=== PATIENT | male | born 1930 | race Caucasian/White ===

== ENCOUNTER 2016-06-22 22:51 | Inpatient (IN) | payer MEDICARE, OTHER ==
[~2016-06-22 22:51] MED LIST: ADULT LOW DOSE81 M1 PO; ADULT LOW DOSE81 MG; AMOXICILLIN500 M1 PO; ASPIRIN81 M1 PO; BACTROBAN15 G1 TP; CENTRUM SILVER1 EAC3 PO; CENTRUM SILVER1 TA; CLONAZEPAM1 M2 PO; CLONAZEPAM2 MG; DEMADEX20 M1 PO; DIGITEK125 MCG; E-400400 UNIT; FLOMAX0.4 M1 PO; FLOMAX0.4 MG; FLUOXETINE HCL10 M2 PO; ISOSORBIDE MONO30 M4 PO; LASIX40 M1 PO; LIPITOR80 MG; LOFIBRA160 M1 PO; LOPRESSOR100 MG; LOPRESSOR50 M1 PO; LORTAB 5-325 M1 EAC1 PO; METOLAZONE5 M1 PO; METOPROLOL TART25 M1 PO; NITROGLYCERIN0.4 M2 SL; NORVASC5 M2 PO; NORVASC5 MG; OCUVITE SOFTGE1 EACH PO; OMEGA-3 FISH1000 M1 PO; PENTOXIFYLLINE400 M2 PO; PLAVIX75 M1 PO; POTASSIUM CHLO10 ME2 PO; POTASSIUM CHLO20 ME3 PO; PROAIR HFA8.5 GM; PROCRIT40000 UNIT SC; PROTONIX40 M2 PO; RANEXA500 M1 PO; RENVELA800 M1 PO; REQUIP1 M1 PO; TOPROL XL100 M1 PO; TORSEMIDE20 M2 PO; TRENTAL400 MG; TRICOR145 MG; VITAMIN D250000 UNI1 PO; ZITHROMAX500 M1 PO; [UNRECOGNIZED DRUG - OTHER]; [UNRECOGNIZED DRUG - OTHER] PO; [UNRECOGNIZED DRUG - REMARK]
[2016-06-22 23:38] LABS: BASO % 0.1 % (0-2); EOS % 0.6 % (0-7); EOSINOPHIL ABSOLUTE COUNT 0.1 tho/cmm (0.0-0.7); HCT-HEMATOCRIT 37.7 % (36.0-53.5); HGB-HEMOGLOBIN 13.3 gm/dl (13.5-17.0); IMMATURE GRANULOCYTES ABSOLUTE 0.03 tho/cmm (0-0.03); IMMATURE GRANULOCYTES PERCENT 0.3 % (0-0.3); LYMPH ABSOLUTE COUNT 0.9 tho/cmm (0.8-4.5); MCH (MEAN CORPUSCULAR HGB) 28.9 pg (28.0-32.0); MCHC MEAN CORPUSCULAR HGB CONC 35.3 % (32.0-36.0); MCV (MEAN CELL VOLUME) 81.8 fl (82.0-96.0); MEAN PLATELET VOLUME 9.2 cmc (9.4-12.4); MONO % 6.7 % (0-12); MONOCYTE ABSOLUTE COUNT 0.7 tho/cmm (0.0-1.2); NEUTROPHIL ABSOLUTE COUNT 8.5 tho/cmm (1.6-8.0); NEUTROPHIL-AUTOMATED 8.5 tho/cmm (1.6-8.0); NEUTROPHILS % 83.3 % (40-80); PLATELET COUNT 238 tho/cmm (150-450); RED BLOOD COUNT 4.61 mil/cmm (4.40-5.70); WHITE BLOOD COUNT 10.2 tho/cmm (4.0-10.0)
[2016-06-22 23:54] LABS: INR 1.3 INR (0.9-1.1); PROTHROMBIN TIME 15.8 SECONDS (9.0-13.6)
[2016-06-22 23:57] LABS: ALB/GLOB RATIO 0.4 (0.8-2.0); ALBUMIN 2.2 g/dl (3.5-5.0); ALKALINE PHOSPHATASE 78 U/L (33-138); ALT/SGPT 25 U/L (12-78); ANION GAP 21 mmol/L (0-20); AST/SGOT 68 U/L (10-40); BILIRUBIN,TOTAL 0.9 mg/dl (0.0-1.5); BLOOD UREA NITROGEN 97 mg/dl (6-24); CALCIUM 8.3 mg/dl (8.5-10.5); CARBON DIOXIDE-VENOUS 21 mmol/L (22-32); CHLORIDE 92 mmol/l (96-110); CREATININE 7.31 mg/dl (0.60-1.30); GLUCOSE 112 mg/dL (70-110); LIPASE 821 U/L (73-393); MAGNESIUM 2.3 mg/dl (1.3-2.6); POTASSIUM 3.5 mmol/L (3.7-5.1); SODIUM 130 mmol/L (135-145); eGFR VALUE FOR BLACK 7 mL/Min
[2016-06-23] MEDS ORDERED: MIDODRINE HCL2.5 M1 PO (00:56)
[2016-06-23] MEDS ORDERED: GENTAMICIN SUL3.5 GM TP (00:57)
[2016-06-24 04:19] LABS: BASO % 0.1 % (0-2); EOS % 0.6 % (0-7); EOSINOPHIL ABSOLUTE COUNT 0.1 tho/cmm (0.0-0.7); HCT-HEMATOCRIT 37.2 % (36.0-53.5); HGB-HEMOGLOBIN 13.3 gm/dl (13.5-17.0); IMMATURE GRANULOCYTES ABSOLUTE 0.06 tho/cmm (0-0.03); IMMATURE GRANULOCYTES PERCENT 0.6 % (0-0.3); LYMPH ABSOLUTE COUNT 1.2 tho/cmm (0.8-4.5); MCH (MEAN CORPUSCULAR HGB) 28.9 pg (28.0-32.0); MCHC MEAN CORPUSCULAR HGB CONC 35.8 % (32.0-36.0); MCV (MEAN CELL VOLUME) 80.7 fl (82.0-96.0); MEAN PLATELET VOLUME 9.4 cmc (9.4-12.4); MONO % 6.3 % (0-12); MONOCYTE ABSOLUTE COUNT 0.7 tho/cmm (0.0-1.2); NEUTROPHIL ABSOLUTE COUNT 8.7 tho/cmm (1.6-8.0); NEUTROPHIL-AUTOMATED 8.7 tho/cmm (1.6-8.0); NEUTROPHILS % 81.4 % (40-80); PLATELET COUNT 227 tho/cmm (150-450); RED BLOOD COUNT 4.61 mil/cmm (4.40-5.70); RED CELL DISTRIBUTION WIDTH 22.4 % (12.4-16.4); WHITE BLOOD COUNT 10.6 tho/cmm (4.0-10.0)
[2016-06-24 05:28] LABS: ALBUMIN 1.8 g/dl (3.5-5.0); ANION GAP 19 mmol/L (0-20); BLOOD UREA NITROGEN 100 mg/dl (6-24); CALCIUM 8.2 mg/dl (8.5-10.5); CARBON DIOXIDE-VENOUS 19 mmol/L (22-32); CHLORIDE 90 mmol/l (96-110); CREATININE 7.74 mg/dl (0.60-1.30); GLUCOSE 113 mg/dL (70-110); PHOSPHOROUS 6.4 mg/dl (2.5-4.9); SODIUM 124 mmol/L (135-145); eGFR VALUE FOR BLACK 7 mL/Min
[2016-06-24 05:43] LABS: POTASSIUM 4.1 mmol/L (3.7-5.1)
[2016-06-24 14:17] LABS: TSH-THYROID STIMULATING HORM. 1.74 uIU/ml (0.40-3.80)
--- NOTE | 2016-06-25 01:21 | NUR ---
TOOK CARE OF PATIENT IN ROOM 354. AT START OF SHIFT PATIENT WAS COMPLAINING OF DIFFICULTY BREATHING AND APPEARED TO BE BREATHING LABORED. I CALLED INTO QUESTION WHETHER THE PATIENT'S PERITONEAL DIALYSIS WAS CAUSING HIM SHORTNESS OF BREATH AND PROCEEDED TO OUTFLOW HIM. ONCE THE SOLUTION WAS OUTFLOWED, THE PATIENT COMMENTED THAT HIS WORK OF BREATHING WAS MUCH IMPROVED. AFTER SPEAKING WITH , SHE DECIDED TO HOLD THE INFLOW BUT GIVE THE 0430 DOSE. THE PATIENT'S FAMILY DID NOT APPEAR HAPPY WITH THIS DECISION AND ALTHOUGH I EXPLAINED THE RATIONALE BEHIND THIS DECISION, THE FOLLOWING INTERACTIONS BETWEEN MYSELF AND FAMILY WERE TENSE. THE FAMILY SEEMED IRRITABLE AND I WAS UNCOMFORTABLE CARING FOR THIS PATIENT ANY FURTHER.
[2016-06-25 05:35] LABS: BASO % 0.1 % (0-2); EOS % 0.7 % (0-7); EOSINOPHIL ABSOLUTE COUNT 0.1 tho/cmm (0.0-0.7); HCT-HEMATOCRIT 35.9 % (36.0-53.5); HGB-HEMOGLOBIN 12.6 gm/dl (13.5-17.0); IMMATURE GRANULOCYTES ABSOLUTE 0.03 tho/cmm (0-0.03); IMMATURE GRANULOCYTES PERCENT 0.3 % (0-0.3); LYMPH % 11.9 % (20-45); LYMPH ABSOLUTE COUNT 1.2 tho/cmm (0.8-4.5); MCH (MEAN CORPUSCULAR HGB) 28.4 pg (28.0-32.0); MCHC MEAN CORPUSCULAR HGB CONC 35.1 % (32.0-36.0); MEAN PLATELET VOLUME 9.3 cmc (9.4-12.4); MONO % 7.2 % (0-12); MONOCYTE ABSOLUTE COUNT 0.7 tho/cmm (0.0-1.2); NEUTROPHIL ABSOLUTE COUNT 7.9 tho/cmm (1.6-8.0); NEUTROPHIL-AUTOMATED 7.9 tho/cmm (1.6-8.0); NEUTROPHILS % 79.8 % (40-80); PLATELET COUNT 227 tho/cmm (150-450); RED BLOOD COUNT 4.43 mil/cmm (4.40-5.70); RED CELL DISTRIBUTION WIDTH 22.6 % (12.4-16.4)
[2016-06-25 05:36] LABS: ANION GAP 20 mmol/L (0-20); BLOOD UREA NITROGEN 91 mg/dl (6-24); CALCIUM 8.1 mg/dl (8.5-10.5); CARBON DIOXIDE-VENOUS 23 mmol/L (22-32); CHLORIDE 89 mmol/l (96-110); CREATININE 7.38 mg/dl (0.60-1.30); GLUCOSE 110 mg/dL (70-110); PHOSPHOROUS 6.2 mg/dl (2.5-4.9); POTASSIUM 3.9 mmol/L (3.7-5.1); SODIUM 128 mmol/L (135-145); eGFR VALUE FOR BLACK 7 mL/Min
[2016-06-25] MEDS ORDERED: ELIQUIS2.5 M1 PO (10:30)
[2016-07-05] MEDS ORDERED: NYSTATIN15 G1 PO (22:34)
== END 2016-06-25 16:40 | disposition home health service (06) | DRG 308 ==
LOC: EDMED 22:51 → EMR2 06-23 01:06 → PCUA 06-23 02:04
PROVIDERS: Emergency Medicine; Internal Medicine; ADMIT Internal Medicine
PROC: 5A09357 Assistance with Respiratory Ventilation, Less than 24 Consecutive Hours, Continuous Positive Airway Pressure (ICD-10-PCS; principal; 2016-06-23)
PROC: 3E1M39Z Irrigation of Peritoneal Cavity using Dialysate, Percutaneous Approach (ICD-10-PCS; 2016-06-24)
DX: I48.0 Paroxysmal atrial fibrillation (principal); I50.43 Acute on chronic combined systolic (congestive) and diastolic (congestive) heart failure; N18.6 End stage renal disease; I27.2 Other secondary pulmonary hypertension; I95.9 Hypotension, unspecified; F01.50 Vascular dementia, unspecified severity, without behavioral disturbance, psychotic disturbance, mood disturbance, and anxiety; E87.1 Hypo-osmolality and hyponatremia; E83.39 Other disorders of phosphorus metabolism; I13.2 Hypertensive heart and chronic kidney disease with heart failure and with stage 5 chronic kidney disease, or end stage renal disease; Z79.02 Long term (current) use of antithrombotics/antiplatelets; Z88.0 Allergy status to penicillin; Z88.8 Allergy status to other drugs, medicaments and biological substances; Z99.2 Dependence on renal dialysis; Z95.2 Presence of prosthetic heart valve; I34.0 Nonrheumatic mitral (valve) insufficiency; I25.10 Atherosclerotic heart disease of native coronary artery without angina pectoris; Z95.1 Presence of aortocoronary bypass graft; E78.5 Hyperlipidemia, unspecified; I73.9 Peripheral vascular disease, unspecified; M19.90 Unspecified osteoarthritis, unspecified site; G25.81 Restless legs syndrome; Z98.1 Arthrodesis status; Z79.01 Long term (current) use of anticoagulants; R79.89 Other specified abnormal findings of blood chemistry; G47.33 Obstructive sleep apnea (adult) (pediatric); J44.9 Chronic obstructive pulmonary disease, unspecified; Z79.82 Long term (current) use of aspirin; R19.7 Diarrhea, unspecified; Z87.891 Personal history of nicotine dependence
CPT/HCPCS: J0282; J1644; J1940; J7030

== ENCOUNTER 2016-07-05 23:37 | Inpatient (IN) | payer MEDICARE, OTHER ==
[2016-07-05 22:29] LABS: CARBON DIOXIDE-VENOUS 23 mmol/L (21-33); CREATININE 8.63 mg/dl (0.67-1.17); GLUCOSE 96 mg/dl (65-120); POTASSIUM 4.4 mmol/L (3.5-5.3); SODIUM 122 mmol/L (135-146); eGFR VALUE FOR BLACK 6 mL/Min
[2016-07-05 22:34] LABS: BASO % 0.1 % (0-2); EOS % 0.3 % (0-7); HCT-HEMATOCRIT 24.3 % (36.0-53.5); HGB-HEMOGLOBIN 8.6 gm/dl (13.5-17.0); IMMATURE GRANULOCYTES ABSOLUTE 0.19 tho/cmm (0-0.03); IMMATURE GRANULOCYTES PERCENT 1.2 % (0-0.3); LYMPH % 6.9 % (20-45); LYMPH ABSOLUTE COUNT 1.1 tho/cmm (0.8-4.5); MCH (MEAN CORPUSCULAR HGB) 28.6 pg (28.0-32.0); MCHC MEAN CORPUSCULAR HGB CONC 35.4 % (32.0-36.0); MCV (MEAN CELL VOLUME) 80.7 fl (82.0-96.0); MONO % 4.9 % (0-12); MONOCYTE ABSOLUTE COUNT 0.8 tho/cmm (0.0-1.2); NEUTROPHIL ABSOLUTE COUNT 13.9 tho/cmm (1.6-8.0); NEUTROPHIL-AUTOMATED 13.9 tho/cmm (1.6-8.0); NEUTROPHILS % 86.6 % (40-80); PLATELET COUNT 230 tho/cmm (150-450); RED BLOOD COUNT 3.01 mil/cmm (4.40-5.70); RED CELL DISTRIBUTION WIDTH 24.4 % (12.4-16.4)
[2016-07-05 22:54] LABS: ALB/GLOB RATIO 0.4 (0.8-2.0); ALBUMIN 1.8 g/dl (3.5-5.0); ALKALINE PHOSPHATASE 64 U/L (33-138); ALT/SGPT 32 U/L (12-78); ANION GAP 15 mmol/L (0-20); AST/SGOT 106 U/L (10-40); BILIRUBIN,TOTAL 1.2 mg/dl (0.0-1.5); BLOOD UREA NITROGEN 136 mg/dl (6-24); CALCIUM 8.3 mg/dl (8.5-10.5); CHLORIDE 88 mmol/l (96-110)
[2016-07-05 23:06] LABS: URINE LEUKOCYTE ESTERASE POSITIVE (NEG); URINE PROTEIN MODERATE (NEG); URINE SPECIFIC GRAVITY 1.025 (1.003-1.030)
[2016-07-05 23:07] LABS: PROCALCITONIN 1.45 ng/ml (0.05-0.09)
[2016-07-05 23:10] LABS: URINE APPEARANCE CLOUDY; URINE BILIRUBIN MODERATE (NEG); URINE BLOOD LARGE (NEG); URINE COLOR YELLOW; URINE GLUCOSE (UA) SMALL (NEG); URINE KETONE SMALL (NEG); URINE NITRITE POSITIVE (NEG)
[2016-07-05 23:21] LABS: URINE RBC 40-50 /[HPF] (0-5); URINE WBC 15-20 /[HPF] (0-5)
[2016-07-05 23:22] LABS: URINE BACTERIA 2+
[~2016-07-05 23:37] MED LIST changes: +ELIQUIS2.5 M1 PO; +GENTAMICIN SUL3.5 GM TP; +MIDODRINE HCL2.5 M1 PO; +NYSTATIN15 G1 PO
[2016-07-06 03:55] LABS: INR 1.8 INR (0.9-1.1); PROTHROMBIN TIME 21.6 SECONDS (9.0-13.6)
[2016-07-06 09:37] LABS: ANION GAP 27 mmol/L (0-20); BLOOD UREA NITROGEN 130 mg/dl (6-24); CARBON DIOXIDE-VENOUS 16 mmol/L (22-32); CHLORIDE 91 mmol/l (96-110); CREATININE 7.56 mg/dl (0.60-1.30); GLUCOSE 97 mg/dL (70-110); POTASSIUM 4.6 mmol/L (3.7-5.1); SODIUM 129 mmol/L (135-145); eGFR VALUE FOR BLACK 7 mL/Min
[2016-07-06 17:58] LABS: ABG CO2 ARTERIAL 11 mmol/L (21-27); ARTERIAL BLD GAS O2 SATURATION 97 % (95-98); ARTERIAL BLOOD GAS PCO2 37 mmHg (32-45); ARTERIAL PO2 138 mmHg (70-100); BICARBONATE 9 mmol/L (21-28); BLOOD GAS BASE EXCESS -20 mM/L (-/+3)
[2016-07-06 17:59] LABS: PH 7.03 Units (7.35-7.45)
== END 2016-07-06 18:05 | disposition expired | DRG 871 ==
LOC: EDMED 23:37 → EMR2 23:56 → CCU 07-06 02:00
PROVIDERS: Emergency Medicine; Internal Medicine; ADMIT Internal Medicine
PROC: 02HV33Z Insertion of Infusion Device into Superior Vena Cava, Percutaneous Approach (ICD-10-PCS; principal; 2016-07-06)
PROC: 5A09357 Assistance with Respiratory Ventilation, Less than 24 Consecutive Hours, Continuous Positive Airway Pressure (ICD-10-PCS; 2016-07-06)
DX: A41.9 Sepsis, unspecified organism (principal); I21.3 ST elevation (STEMI) myocardial infarction of unspecified site; I50.43 Acute on chronic combined systolic (congestive) and diastolic (congestive) heart failure; I47.2 Ventricular tachycardia; N18.6 End stage renal disease; I27.2 Other secondary pulmonary hypertension; I42.9 Cardiomyopathy, unspecified; E87.1 Hypo-osmolality and hyponatremia; I13.2 Hypertensive heart and chronic kidney disease with heart failure and with stage 5 chronic kidney disease, or end stage renal disease; N39.0 Urinary tract infection, site not specified; I34.0 Nonrheumatic mitral (valve) insufficiency; I44.7 Left bundle-branch block, unspecified; I07.1 Rheumatic tricuspid insufficiency; I25.10 Atherosclerotic heart disease of native coronary artery without angina pectoris; R65.20 Severe sepsis without septic shock; I48.0 Paroxysmal atrial fibrillation; F01.50 Vascular dementia, unspecified severity, without behavioral disturbance, psychotic disturbance, mood disturbance, and anxiety; Z87.891 Personal history of nicotine dependence; Z95.2 Presence of prosthetic heart valve; Z95.1 Presence of aortocoronary bypass graft; Z99.2 Dependence on renal dialysis; Z79.01 Long term (current) use of anticoagulants; Z79.02 Long term (current) use of antithrombotics/antiplatelets; Z88.0 Allergy status to penicillin; Z88.8 Allergy status to other drugs, medicaments and biological substances; E78.5 Hyperlipidemia, unspecified; I73.9 Peripheral vascular disease, unspecified; J44.9 Chronic obstructive pulmonary disease, unspecified; G47.33 Obstructive sleep apnea (adult) (pediatric); M19.90 Unspecified osteoarthritis, unspecified site; Z98.1 Arthrodesis status; D63.1 Anemia in chronic kidney disease; R55 Syncope and collapse
CPT/HCPCS: C1751; J1265; J1644; J1956; J3370; J7030; J7040; P9612